=== PATIENT | female | born 1985 | race Two or more races ===

== ENCOUNTER 2020-01-21 04:53 | Inpatient (IN) | payer OTHER ==
[~2020-01-21] VITALS: Ht 172.7 cm; Wt 3.2 kg
[2020-01-21] MEDS ORDERED: PRENATAL TABLE1 EAC1 PO (06:34)
[2020-01-21] MEDS ORDERED: LEVOTHYROXINE25 MCG PO (06:35)
[2020-01-21] MEDS ORDERED: NIFEDIPINE20 MG PO (06:37)
== END 2020-01-23 13:19 | DRG 788 ==
LOC: LDR 04:53 → OB/GYN 04:53 → O/R 09:06 → OB/GYN 10:22
PROVIDERS: ADMIT Specialist; ATTEND Specialist
PROC: 4A0HXFZ Measurement of Products of Conception, Cardiac Rhythm, External Approach (ICD-10-PCS; 2020-01-21)
PROC: 10D00Z1 Extraction of Products of Conception, Low, Open Approach (ICD-10-PCS; principal; 2020-01-21 07:00)
DX: O82 Encounter for cesarean delivery without indication (principal); O99.02 Anemia complicating childbirth; O99.284 Endocrine, nutritional and metabolic diseases complicating childbirth; E03.8 Other specified hypothyroidism; Z3A.38 38 weeks gestation of pregnancy; Z37.0 Single live birth